=== PATIENT | male | born 1990 ===

== ENCOUNTER 2018-08-01 12:37 | Emergency (ER) | payer OTHER ==
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
[2018-08-02 00:12] VITALS: BP 142/89; PULSE 89; RESP 15; TEMP 98.2; O2SAT 99
== END 2018-08-01 14:15 | disposition home or self-care (01) ==
LOC: H.ER 12:37
DX: F43.21 Adjustment disorder with depressed mood (principal); Z88.0 Allergy status to penicillin